=== PATIENT | male | born 1965 | race Caucasian/White ===

== ENCOUNTER 2024-06-06 10:11 | Outpatient (REF) | payer MEDICAID, SELFPAY ==
--- NOTE | ~2024-06-06 | XR_ITS ---
EXAMINATION: XR WRIST, LEFT CLINICAL INFORMATION: Left wrist pain COMPARISON: None available. TECHNIQUE: PA, lateral, and oblique views of the left wrist. FINDINGS: Possible hairline fracture of the distal radius. Correlate for point tenderness. No malalignment. 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 XR/XR wrist LT min 3V IMPRESSION: Possible hairline fracture of the distal radius. Correlate for point tenderness. No malalignment. 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 Electronically signed by: Nathanael Bah MD 06/12/2024 12:35 PM EDT
== END 2024-06-06 10:12 | disposition home or self-care (01) ==
LOC: HO.HOSX 10:11
PROVIDERS: Visit Provider Physician Assistant
DX: M25.532 Pain in left wrist (principal)
CPT/HCPCS: 73110

== ENCOUNTER 2024-07-23 14:11 | Outpatient (AMB) | payer MEDICAID, SELFPAY ==
--- NOTE | 2024-07-23 14:28 | MHC.OFFVIS ---
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 Patient states he does not remember how the injury happened due to alcohol intoxication. Patient denies numbness and tingling. Denies finger locking. Patient states he broke his left arm years ago . He has been managing with OTC pain medications with little to no relief. 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 He is a new patient to our clinic. He complains of pain in his left wrist , pointing to his left radial styloid and also the dorsal ulnar styloid. He says he had a distal radius fracture from ~01/2024 treated elsewhere non operatively. Etiology unclear due to ETOH abuse. He says this was managed non-operatively and he denies going to physical therapy. [facility] Social History (Updated 07/23/24 @ 14:31 by HUMBERTO Camarena) Current occupational status: unemployed Current occupation: rt handed Review of Systems Const All systems reviewed & are unremarkable except as noted in HPI and below Physical Exam Vital Signs: BMI result Body Mass Index 23.7 Const General: cooperative, healthy appearing and no acute distress Orientation/consciousness: patient oriented x3 HEENT Head: Yes normocephalic and Yes atraumatic Eyes EOM: EOMs intact bilaterally Resp Effort & Inspection: normal respiratory effort and able to speak in complete sentences Cardio Jugular venous distension: no JVD Skin General skin exam: turgor normal Rashes: no rashes Neuro General: patient oriented x3 Extrem Other: Evaluation of Left Upper Extremity: The patient is alert, oriented, and in no acute distress Neuro: Median, Ulnar, Radial nerves motor and sensory intact Vascular: Cap refill brisk ROM: He can make a fist and extend all his digits No locking or catching Skin: No lacerations or abrasions. General: No Ecchymosis. No Erythema or evidence of infection. Negative Jose test on the left, though this caused some minor discomfort over the left thumb MCP joint Mild tenderness over the 1s dorsal compartment & radial styloid Negative Jose test Mild tenderness over dorsal aspect of the distal ulna No swelling No tenderness over the dorsal aspect of the distal radius or the DRUJ. DRUJ is stable. Left Wrist ROM: Nearly symmetrical wrist pronosupination Nearly symmetrical wrist extension Flexion: ~60 degrees Radiographs: 3 views of the left wrist were taken and viewed by me today in clinic. They show a healed minimally displaced distal radius fracture with satisfactory fracture alignment. There is also some basal joint osteoarthritis with joint space narrowing, subchondral sclerosis, and osteophyte formation. Psych Appearance: grossly normal Affect: normal affect Attitude: cooperative Assessment & Plan Assessment & Plan (1) Distal radius fracture, left: Code(s): S52.502A - Unspecified fracture of the lower end of left radius, initial encounter for closed fracture Category: Medical (2) Stiffness of left wrist joint: Code(s): M25.632 - Stiffness of left wrist, not elsewhere classified Category: Medical Plan Assessment & Plan: 1. Left wrist discomfort and mild stiffness Likely secondary to disuse following distal radius fracture from ~01/2024 I educated him about this condition I discussed non-operative treatment options I recommend OT hand therapy, and he is in agreement I ordered OT hand therapy to work on ROM, strengthening, and normalizing function I discussed activity modification, he is to work on wrist ROM exercises at home He will discontinue his wrist splint at this time, and begin to use his hand for more normal daily activities He can follow up prn Scribed for Aixa Amado MD by Dustin Monk, medical claims manager, on 07/23/24 at 3:00 PM, EST. Orders: Orders OT Evaluation and Treatment Today M25.632 - Stiffness of left wrist, not elsewhere classified, S52.502A - Unspecified fracture of the lower end of left radius, initial encounter for closed fracture XR wrist LT min 3V Today M25.532 - Pain in left wrist Coding Level of Care Code New Pt Level 3 (67054) Diagnoses Distal radius fracture, left S52.502A Stiffness of left wrist joint M25.632
[2024-07-23 14:35] VITALS: BMI 23.7
== END 2024-07-23 15:10 | disposition home or self-care (01) ==
LOC: HO.HOS 14:12
PROVIDERS: PCP Nurse Practitioner; Visit Provider Orthopaedic Surgery
DX: S52.502A Unspecified fracture of the lower end of left radius, initial encounter for closed fracture (principal); M25.632 Stiffness of left wrist, not elsewhere classified
CPT/HCPCS: 99203

== ENCOUNTER 2024-07-23 15:41 | Outpatient (REF) | payer MEDICAID, SELFPAY | END 2024-07-23 15:42 | disposition home or self-care (01) | LOC: HO.HOSX 15:41 | PROVIDERS: Visit Provider Orthopaedic Surgery | DX: M25.632 Stiffness of left wrist, not elsewhere classified (principal); M25.532 Pain in left wrist; S52.502A Unspecified fracture of the lower end of left radius, initial encounter for closed fracture | CPT/HCPCS: 73110; 99202 ==